=== PATIENT | female | born 1985 | race African-American/Black ===

== ENCOUNTER → 2018-01-11 | Outpatient (CLI) | payer OTHER ==
[~2018-01-11] MED LIST: NYST1000 SWISH-SWAL; PREN29TA PO
== END ==
LOC: HPND 09:22
PROVIDERS: ATTEND Obstetrics & Gynecology
DX: O35.0XX0 Maternal care for (suspected) central nervous system malformation in fetus, not applicable or unspecified (principal)
CPT/HCPCS: 76811

== ENCOUNTER → 2018-02-08 | Outpatient (CLI) | payer OTHER | LOC: HPND 08:36 | PROVIDERS: ATTEND Obstetrics & Gynecology | DX: O35.1XX0 Maternal care for (suspected) chromosomal abnormality in fetus, not applicable or unspecified (principal); O28.3 Abnormal ultrasonic finding on antenatal screening of mother; O99.212 Obesity complicating pregnancy, second trimester; E66.01 Morbid (severe) obesity due to excess calories; Z68.41 Body mass index [BMI] 40.0-44.9, adult | CPT/HCPCS: 36415; 76816; 76825; 76827; 93325 ==

== ENCOUNTER → 2018-03-08 | Outpatient (CLI) | payer OTHER, MEDICAID | LOC: HPND 08:47 | PROVIDERS: ATTEND Obstetrics & Gynecology | DX: O35.8XX0 Maternal care for other (suspected) fetal abnormality and damage, not applicable or unspecified (principal); O99.212 Obesity complicating pregnancy, second trimester; E66.01 Morbid (severe) obesity due to excess calories; Z68.41 Body mass index [BMI] 40.0-44.9, adult; O28.0 Abnormal hematological finding on antenatal screening of mother | CPT/HCPCS: 76816; 76825; 76827; 93325 ==

== ENCOUNTER → 2018-04-05 | Outpatient (CLI) | payer OTHER, MEDICAID | LOC: HPND 08:48 | PROVIDERS: ATTEND Obstetrics & Gynecology | DX: O28.0 Abnormal hematological finding on antenatal screening of mother (principal); E66.01 Morbid (severe) obesity due to excess calories; Z68.41 Body mass index [BMI] 40.0-44.9, adult; O99.213 Obesity complicating pregnancy, third trimester; O35.8XX0 Maternal care for other (suspected) fetal abnormality and damage, not applicable or unspecified | CPT/HCPCS: 76816 ==